=== PATIENT | male | born 1980 | race Caucasian/White ===

== ENCOUNTER 2019-01-24 13:10 | Day surgery (SDC) | payer OTHER ==
[~2019-01-24] VITALS: Ht 172.7 cm; Wt 113.4 kg
--- NOTE | 2019-01-24 13:31 | PREAC ---
Date/Time of Note Date/Time of Note DATE: 01/24/19 TIME: 13:30 Anesthesia Eval and Record Evaluation Time Pre-Procedure Interview DATE: 01/24/19 TIME: 13:30 Age 38 Sex male NPO: 8 hrs Preoperative diagnosis DYSPEPSIA, MELENA Planned procedure EGD AND COLONOSCOPY Past Medical History Past Medical History: Includes Cardio: HTN Endo: Diabetes GI: Obesity Surgery & Anesthesia Issues No known issue Meds Anticoagulation: No Beta Bethany within 24 hr: No Reason Beta Bethany not given: Pt. not on B-Bethany Meds reviewed: Yes Allergies Allergies Reviewed: Yes Labs/Studies Labs Reviewed: Reviewed by anesthesiologist test: N/A Pre-procedure Exam Airway: Adequate mouth opening, Adequate thyromental dist Mallampati: Mallampati II Teeth: Normal Lung: Normal Heart: Normal ASA Physical Status ASA physical status: 2 Emergency: None Planned Anesthetic General/MAC: MAC Planned Pain Management Parenteral pain med Pre-operative Attestations Prior to commencing anesthesia and surgery, the patient was re-evaluated, there was verification of: *The patient's identity *The results of appropriate recent lab work and preoperative vital signs *The above evaluation not changing prior to induction *Anesthetic plan, risk benefits, alternative and complications discussed with patient/family; questions answered; patient/family understands, accepts and wishes to proceed. CYNTHIA SYED Jan 24, 2019 13:31
[2019-01-24 13:33] VITALS: Ht 172.7 cm; Wt 113.4 kg
[2019-01-24] MEDS ORDERED: OMEPRAZOLE (13:37)
[2019-01-24] MEDS ORDERED: GLIMEPIRIDE (13:37)
[2019-01-24] MEDS ORDERED: LISINOPRIL (13:37)
[2019-01-24] MEDS ORDERED: METFORMIN (13:37)
--- NOTE | 2019-01-24 13:43 | HPN ---
Date/Time of Note Date/Time of Note DATE: 01/24/19 TIME: 13:43 Interval H&P Admission Note Pt. seen H&P reviewed: No system changes CINDI JIANG Jan 24, 2019 13:43
[2019-01-24 13:49] VITALS: BP 127/74; PULSE 79; RESP 10
[2019-01-24] MEDS ORDERED: ONDANSETRON 4 MG INJ IV PRN (14:00)
[2019-01-24] MEDS ORDERED: hydrALAzine 20 MG INJ IV PRN (14:00)
[2019-01-24] MEDS ORDERED: EPHEDrine SULFATE 50 MG/5 ML SYG IV PRN (14:00)
[2019-01-24] MEDS ORDERED: LABETALOL HCL 20MG INJ IV PRN (14:00)
[2019-01-24] MEDS ORDERED: DIPHENHYDRAMINE 50 MG INJ IV PRN (14:00)
[2019-01-24] MEDS ORDERED: FENTAnyl 50 MCG/ML VIAL IV PRN (14:00)
[2019-01-24] MEDS ORDERED: PROPOFOL 80 ML ONE (14:22)
[2019-01-24] MEDS ORDERED: LIDOCAINE 2% (SDV) 5 ML INJ ONE (14:22)
--- NOTE | 2019-01-24 14:42 | PAC ---
Date/Time of Note Date/Time of Note DATE: 01/24/19 TIME: 14:42 Post-Anesthesia Notes Post-Anesthesia Note Last documented vital signs Vital Signs Date Temp Pulse Resp B/P (MAP) Pulse Ox O2 O2 Flow FiO2 Time Delivery Rate 01/24/19 79 10 127/74 97 Room Air 1442 (91) Activity: WNL Respiratory function: WNL Cardiovascular function: WNL Mental status: Baseline Pain reasonably controlled: Yes Hydration appropriate: Yes Nausea/Vomiting absent: Yes CYNTHIA SYED Jan 24, 2019 14:42
[2019-01-24 15:17] VITALS: BP 105/60; RESP 20
== END 2019-01-24 15:02 | disposition home or self-care (01) ==
LOC: GIL 13:10
PROVIDERS: ATTEND Internal Medicine Gastroenterology
DX: K92.1 Melena (principal); K21.0 Gastro-esophageal reflux disease with esophagitis; E11.9 Type 2 diabetes mellitus without complications; I10 Essential (primary) hypertension
CPT/HCPCS: 43239; 45378; 82962; 88305; 88313; Z7610